=== PATIENT | female | born 1995 | race Caucasian/White ===

== ENCOUNTER 2017-07-08 11:02 | Emergency (ER) | payer OTHER ==
[~2017-07-08] VITALS: Ht 157.5 cm; Wt 101.4 kg
[~2017-07-08 11:02] MED LIST: IBUPROFEN800 MG PO; MACROBID100 MG PO; NOHOMEMEDS
[2017-07-08 11:10] VITALS: BP 117/74
[2017-07-08 11:53] LABS: APPEARANCE SL.HAZY ((CLEAR)); BILIRUBIN NEGATIVE; BLOOD NEGATIVE; COLOR YELLOW ((YELLOW)); GLUCOSE (STRIP) NEGATIVE; KETONES NEGATIVE; LEUKOCYTES SMALL; NITRITE NEGATIVE; PROTEIN (STRIP) NEGATIVE; SPECIFIC GRAVITY 1.014 (1.000-1.030)
[2017-07-08 11:57] LABS: BACTERIA RARE /HPF; CALCIUM OXALATE CRYSTALS 1+ /HPF; EPITHELIAL CELLS 1+ /HPF; HYALINE CASTS 0-5 /LPF; MUCUS TRACE /LPF; RED BLOOD CELLS 0-5 /HPF (0-5); WHITE BLOOD CELLS 0-5 /HPF (0-5)
[2017-07-08 11:59] LABS: HEMATOCRIT 33.8 % (36.0-46.0); HEMOGLOBIN 11.6 G/DL (11.9-15.5); MCH 26.7 PG (29.0-34.0); MCHC 34.3 G/DL (30.0-36.0); MCV 77.7 FL (83-99); PLATELET COUNT 226 K/uL (156-360); RBC DIS.WIDTH-SD 39.2 % (39-53); RED BLOOD COUNT 4.35 M/uL (3.80-5.20); WHITE BLOOD COUNT 10.4 K/uL (4.1-10.2)
[2017-07-08 12:07] LABS: CHLORIDE 108 mEq/L (99-109)
[2017-07-08 12:08] LABS: POTASSIUM 3.7 mEq/L (3.7-5.4); SODIUM 135 mEq/L (136-147)
[2017-07-08 12:09] LABS: GLUCOSE 79 mg/dL (70-99)
[2017-07-08 12:13] LABS: CREATININE 0.6 mg/dL (0.6-1.3); GFR ESTIMATE (CALCULATED) > 59 mL/min/
[2017-07-08 12:14] LABS: UREA NITROGEN (BUN) 7 mg/dL (9-23)
== END 2017-07-08 12:51 | disposition home or self-care (01) ==
LOC: EME 11:02
PROVIDERS: Nurse Practitioner Family
DX: O20.0 Threatened abortion (principal); R10.30 Lower abdominal pain, unspecified; Z3A.18 18 weeks gestation of pregnancy; Z87.891 Personal history of nicotine dependence
CPT/HCPCS: 80048; 81003; 85027; 99281; 99284